=== PATIENT | female | born 1970 | race Caucasian/White ===

== ENCOUNTER 2020-06-28 12:58 | Emergency (ER) | payer BC, SELFPAY ==
[2020-06-28 13:58] VITALS: BP 142/82; PULSE 88; RESP 16; TEMP 36.7; O2SAT 99; BMI 26.6
--- NOTE | 2020-06-28 14:45 | ED_ITS ---
HPI - General Adult General Chief complaint: General Medical Stated complaint: r/u dvt Time Seen by Provider: 06/28/20 14:40 Source: patient Mode of arrival: ambulatory Limitations: no limitations History of Present Illness HPI narrative: 50 yo female previously healthy here with right knee swelling, pain and posterior knee and calf pain x several days, worsening last night. No injury or trauma. No chest pain/shortness of breath, redness of extremity. No recent travel or recent illness. No h/o DVT or PE. Onset (ago): day(s) Location: lower extremity Radiation: non-radiation Severity: mild Quality: aching Pain Consistency: intermittent Relieving factors: none Exacerbating factors: none Associated symptoms: denies other symptoms Treatments prior to arrival: none Related Data Allergies Allergy/AdvReac Type Severity Reaction Status Date / Time droperidol [From Inapsine] Allergy Palpitation Verified 06/28/20 14:07 s Influenza Virus Vaccines Allergy Numbness Verified 06/28/20 14:07 Review of Systems Review of Systems: Yes all other systems are reviewed and are negative Constitutional: Constitutional: Reports no additional constitutional complaints, Denies body ache(s), Denies chills, Denies fever(s), Denies headache (s) and Denies weakness Eyes: Eyes: Reports no additional eye complaints and Denies change in vision ENT: Reports system reviewed and no additional complaints, except as documented, Denies dizziness, Denies headache(s), Denies nasal congestion, Denies nasal discharge and Denies neck pain Cardiovascular: Cardiovascular: Reports no additional cardiovascular complaints, Denies chest pain, Denies leg edema and Denies dyspnea Respiratory: Respiratory: Reports no additional respiratory complaints, Denies cough and Denies dyspnea Gastrointestinal: Gastrointestinal: Reports no additional gastrointestinal complaints, Denies abdominal pain, Denies diarrhea, Denies nausea and Denies vomiting Genitourinary: Genitourinary: Reports no additional female genitourinary complaints and Denies urinary incontinence Musculoskeletal: Musculoskeletal: Reports no additional musculoskeletal complaints, Denies back pain, Reports arthralgias, Reports joint swelling, Denies neck pain, Denies numbness and Denies tingling Comments: +muscle pain Integumentary/Breasts: Skin/Breast: Reports system reviewed and no additional complaints, except as docu and Denies rash Neurologic: Reports system reviewed and no additional complaints, except as documented, Denies Abnormal speech present, Denies dizziness, Denies headache(s), Denies numbness, Denies tingling and Denies weakness PMFSH Past Medical History Attestation statement: The following information was validated with the patient. Source: old records reviewed and nursing notes reviewed Medical History Anxiety Social History Social History Advance Directives: No Advance Directives Information Provided: No Physical Exam Vital Signs: Vital Signs: Last Vital Signs Temp 98.0 F 06/28/20 13:58 Pulse 88 06/28/20 13:58 Resp 16 06/28/20 13:58 BP 142/82 H 06/28/20 13:58 Pulse Ox 99 06/28/20 13:58 Body Mass Index 29.0 Const: General: cooperative, healthy appearing, comfortable and no acute distress Orientation/consciousness: patient oriented x3 Limitations: no limitations HENMT: Head: Yes normal to inspection Ears: hearing grossly normal bilaterally General nose exam: Normal external nose present Face and sinus: Yes normal facial exam Mouth: Normal oral and palatal mucosa present Throat: Yes posterior oropharynx normal Eyes: General: appearance normal, both eyes and all related structures Pupils: Equal, round and reactive pupils present Neck: Neck: Yes normal visual inspection Chest: Chest palpation & inspection: normal inspection of the chest Resp: Effort & Inspection: normal respiratory effort Auscultation: clear to auscultation bilaterally Cardio: Rate: regular rate Rhythm: regular rhythm Peripheral pulses: Peripheral pulses 2+ throughout GI: Inspection: Yes normal to inspection Palpation (GI): Soft to palpation and nontender Auscultation: normal bowel sounds Back/Spine/Pelvis: Thoracic/Lumbar Spine: thoracic and lumbar spine normal to inspection Skin: General skin exam: no rashes or lesions noted Neuro: General: patient oriented x3, no focal motor deficits and normal sensation to monofilament Cranial nerves: Yes Equal, round and reactive pupils present Cognition (Neuro): normal cognition Speech: No Abnormal speech present Gait exam (Neuro): Normal gait present Motor exam (neuro): 5/5 motor strength present throughout Extrem: General: Yes normal to inspection Right lower extremity: normal to inspection, full ROM, normal capillary refill and knee (Tenderness of posterior knee and calf. Mild swelling, no erythema ) Details: normal to inspection Course Course Course Narrative: 50 yo female here with right knee/calf pain and swelling. No injury or trauma. Will check UA to r/o DVT and x-ray to r/o bony abnormality. 1600-x-ray negative for bony abnormality. Ultrasound shows no evidence of DVT however they were unable to visualize all of the veins in the calf. Recommend follow-up ultrasound in 5-7 days if having continued symptoms. A copy of the report was given to the patient. She is aware of what she needs to do for her follow-up. Reviewed worrisome signs and symptoms and when to return to the [facility]. Comfortable discharge home. Medical Decision Making Imaging Data knee xray: Attestation: I personally reviewed and interpreted this imaging study as follows: Radiologist's impression: [address] [id number] ReportSigned Patient: Julissa Bautista#: [id number]: 1970Acct:[id number]/Sex: 50 / FADM Date: 06/28/20Loc: SUSANNEAttending Dr: Ordering Physician: ACOSTA MENESES NP Date of Service: 06/28/20 Procedure(s): XR knee RT 4V Accession Number(s): [id number] cc: ACOSTA MENESES NP~ EXAMINATION: XR KNEE, RIGHT CLINICAL INFORMATION: Swelling, pain right knee. COMPARISON: None TECHNIQUE: Four views of the right knee. FINDINGS: Bones and soft tissues are normal. No fracture or joint effusion. Alignment is anatomic. Joint spaces are well maintained. No abnormal soft tissue calcification. XR/XR knee RT 4V IMPRESSION: Unremarkable right knee exam. venous US: Attestation: I personally reviewed and interpreted this imaging study as follows: Radiologist's impression: [address] [id number] ReportSigned Patient: Julissa Bautista#: [id number]: 1970Acct:[id number]/Sex: 50 / FADM Date: 06/28/20Loc: HO.EDAttending Dr: Ordering Physician: ACOSTA MENESES NP Date of Service: 06/28/20 Procedure(s): US venous duplex LE RT Accession Number(s): [id number] cc: ACOSTA MENESES NP~ EXAMINATION: US VENOUS ULTRASOUND WITH DOPPLER LOWER EXTREMITY, RIGHT CLINICAL INFORMATION: Right calf pain and tenderness and swelling. Rule out DVT. COMPARISON: None TECHNIQUE: Ultrasound of the deep veins is performed from the hip to the calf with compression sonography and color and pulse Doppler assessment. Spectral analysis with color-flow imaging is performed. FINDINGS: There is normal venous compression and respiratory variation and augmented flow. The visualized common femoral vein, superficial femoral vein, profunda femoral vein, popliteal vein, and the trifurcation region shows no evidence of deep venous thrombosis. There is no significant popliteal fossa cyst. If the patient's symptoms persist, followup ultrasound in 5 days 7 days might be of value to exclude proximal propagation from a non-visualized calf vein. US/US venous duplex LE RT IMPRESSION: No DVT demonstrated in the right lower extremity. Discharge Plan Discharge Clinical Impression: Acute knee pain Qualifiers: Laterality: right Qualified Code(s): M25.561 - Pain in right knee Patient Disposition: Home, Self-Care Instructions: Knee Pain (ED) Additional Instructions: Your x-ray looks okay. Your ultrasound looks unremarkable but they were unable to visualize all of the veins in the calf so if your continue to have symptoms you should have a repeat ultrasound in 5-7 days Rest, elevation, Motrin or Tylenol for pain Use an Robbi wrap for comfort Referrals: Jazz Falk MD [Primary Care Provider] - 2 days Interventions: ED Discharge Assessment Last Done: 06/28/20 16:12 Discharge Date/Time: 06/28/20 16:12
--- NOTE | 2020-06-28 14:49 | XR_ITS ---
EXAMINATION: XR KNEE, RIGHT CLINICAL INFORMATION: Swelling, pain right knee. COMPARISON: None TECHNIQUE: Four views of the right knee. FINDINGS: Bones and soft tissues are normal. No fracture or joint effusion. Alignment is anatomic. Joint spaces are well maintained. No abnormal soft tissue calcification. XR/XR knee RT 4V IMPRESSION: Unremarkable right knee exam.
[2020-06-28 15:30] VITALS: BMI 29.0
== END 2020-06-28 16:12 | disposition home or self-care (01) ==
PROVIDERS: Emergency Provider Internal Medicine; PCP Internal Medicine
DX: M25.561 Pain in right knee (principal); R60.0 Localized edema
CPT/HCPCS: 73564; 93971; 99283; 99284